=== PATIENT | male | born 1940 | race Caucasian/White ===

== ENCOUNTER 2024-05-03 20:13 | Inpatient (IN) ==
[2024-05-03] MEDS: diazePAM INJ CARPUJECT 5 MG/ML SYRINGE IV ONE ×3 (21:19→22:54)
[2024-05-04] MEDS ORDERED: Albuterol HFA INHALER 8 gm MDI INH PRN (00:53)
[2024-05-04] MEDS ORDERED: guaiFENesin/CODIENE 100mg/10mg 5 ML UDC PO PRN (00:53)
[2024-05-04] MEDS ORDERED: CMCS: diPHENhydraMINE CREAM 2%(NF) 28 gm TUBE TOPICAL PRN (00:53)
[2024-05-04] MEDS ORDERED: Morphine ORAL CONCENTRATE 5 MG/0.25 ML ORAL.SYRIN SL PRN ×5 (00:57→09:58)
[2024-05-04] MEDS: Morphine ORAL CONCENTRATE 5 MG/0.25 ML ORAL.SYRIN SL PRN ×2 (01:35→10:11)
[2024-05-04 01:43] LABS: Albumin 2.7 g/dL (3.2-5.2); Albumin/Globulin Ratio 1.5 (1-3); Calcium 8.2 mg/dL (8.6-10.3); Creatinine, Serum 0.95 mg/dL (0.67-1.17); Globulin 1.8 g/dL (2-4); Potassium 3.6 mmol/L (3.5-5.0); Total Bilirubin 1.2 mg/dL (0.2-1.0); Total Protein 4.5 g/dL (6.4-8.9); eGFR CKD-EPI 78.4 (>60)
[2024-05-04 02:45] LABS: ABS Eosinophils 0.1 10^3/uL (0.0-0.5); ABS Lymphocytes 0.8 10^3/uL (1.0-4.8); ABS Monocytes 0.4 10^3/uL (0.0-1.1); ABS Nucleated RBC 0.01 10^3/ul; Anisocytosis 1+; Eosinophil % 2.7 %; Hematocrit 34.8 % (38-53); Hemoglobin 11.3 g/dL (13.2-16.3); Lymphocyte % 19.3 %; Mean Corpuscular Hemoglobin 25.9 pg (27-33); Mean Corpuscular Hgb Conc 32.4 g/dL (31-36); Mean Corpuscular Volume 79.7 fL (80-97); Mean Platelet Volume 8.4 fL (7.5-11.2); Microcytosis 1+; Nucleated Red Blood Cells % 0.3 %/100WBC (0.0-0.8); Platelet Count 95 10^3/uL (150-450); Red Blood Count 4.37 10^6/uL (4.06-5.63); Red Cell Distribution Width 27.3 % (12-17); White Blood Count 4.4 10^3/uL (3.6-10.2)
[2024-05-04] MEDS: Potassium Chloride LIQUID 20 MEQ/15 ML LIQUID PO ONE (10:00)
[2024-05-04] MEDS: Tiotropium Brom/Olodaterol MDI (ACUTE) INH SCH (10:05)
[2024-05-05] MEDS: Senna TAB 8.6 mg TAB PO PRN (20:18)
[2024-05-05 22:41] LABS: Urine Appearance Clear; Urine Bilirubin Negative (Negative); Urine Blood Negative (Negative); Urine Color Light-Yellow; Urine Glucose 4+ (>=1000 mg/dL) (Negative); Urine Ketones Negative (Negative); Urine Nitrite Negative (Negative); Urine Protein Negative (Negative); Urine Urobilinogen Negative (Negative); Urine pH 6.5 (5.0-8.0)
[2024-05-08] MEDS ORDERED: Midazolam 5 mg/5 ml VIAL 1 mg/ml 5 ml VIAL (5 mg) ONE (12:28)
[2024-05-08] MEDS ORDERED: fentaNYL 250 mcg/5 ml 50 MCG/ML 5 ml VIAL (250 MCG) ONE (12:28)
[2024-05-08] MEDS: Haloperidol 5 mg/ml SDV IV/IM 5 MG/ML AMP IM PRN (18:02)
[2024-05-10 09:33] LABS: Urine Appearance Clear; Urine Bilirubin Negative (Negative); Urine Blood Negative (Negative); Urine Color Yellow; Urine Glucose 3+ (>=300 mg/dL) (Negative); Urine Ketones Trace (Negative); Urine Nitrite Negative (Negative); Urine Protein Trace (Negative); Urine Specific Gravity 1.011 (1.002-1.030); Urine Urobilinogen Negative (Negative)
[2024-05-15] MEDS: Haloperidol 5 mg/ml SDV IV/IM 5 MG/ML AMP IM ONE (03:43)
[2024-05-16] MEDS: Haloperidol 5 mg/ml SDV IV/IM 5 MG/ML AMP IM ONE (07:51)
[2024-05-21] MEDS ORDERED: Senna TAB 8.6 mg TAB PO PRN (09:42)
[2024-05-21] MEDS: Polyethylene Glycol 3350 17 GM PACKET PO SCH (10:00)
[2024-05-21] MEDS: Magnesium Hydroxide LIQ 30 ML UDC PO SCH ×2 (10:00→16:27)
[2024-05-21] MEDS: Senna TAB 8.6 mg TAB PO SCH (21:25)
[2024-05-22] MEDS ORDERED: Polyethylene Glycol 3350 17 GM PACKET PO SCH (09:00)
[2024-05-23] MEDS: Senna TAB 8.6 mg TAB PO SCH (20:23)
[2024-05-24] MEDS ORDERED: Calcium Carb (TUMS) 500 mg CHEW TAB PO PRN (05:19)
[2024-05-25 10:58] VITALS: BP 113/64
[2024-05-26 17:16] LABS: Rapid COVID-19 Molecular Undetected (Undetected)
== END 2024-05-27 14:00 | DRG 775 ==
LOC: ED 20:13 → EDHOLD 20:13 → SUATTDRO 05-04 00:11 → MED 05-04 12:41
PROVIDERS: ADMIT Internal Medicine; ATTEND Internal Medicine